=== PATIENT | male | born 1960 | race Caucasian/White ===

== ENCOUNTER → 2017-11-15 | Outpatient (CLI) | payer OTHER ==
[2017-11-09 12:32] VITALS: BMI 21.2
--- NOTE | 2017-11-15 14:55 | P.HPIM ---
History of Present Illness H&P Date: 11/15/17 Chief Complaint: neck pain and right arm numbness/tingling This is a 57-year-old patient referred by Dr. Wallace for chronic pain in neck with radiation to both arms, R >> L. Patient has been taking medications from primary care physician including Tylenol/Motrin medications with some relief. Patient denies adverse drug effects from medications. Patient also denies new- onset weakness, bowel/bladder incontinence, or any other signs or symptoms of cauda equina syndrome. There are no signs of acute intoxication, and no indications of medication diversion or overuse. Patient notes that pain worsens significantly with driving and turning his head , and improves with rest, lying on his right side, and medication. Patient has used several types of medications for pain, including NSAIDS, Tylenol. Patient HAS NOT had surgery. Patient HAS NOT had injections previously. Patient HAS had physical therapy recently without significant relief. In addition to above, 13-point review of systems is also negative for chest pain , shortness of breath, changes in vision, changes in hearing, new onset weakness , abdominal pain, diarrhea, extreme fatigue, malaise, fever, skin changes, homicidal or suicidal ideation, or bowel or bladder incontinence. Vital Signs: Reviewed in EMR Gen: WDWN, AAOx3, NAD HEENT: NCAT, EOMI, hearing grossly normal Pulm: resp unlabored Abd: soft, NT, ND Neck: supple, trachea midline ROM in flexion cervical spine: reduced ROM in extension cervical spine: reduced Cervical paravertebral tenderness: + Cervical Facet tenderness: + bilateral, R > L Spurling's: + RUE Upper extremity: decreased toe puncher strength, decreased shoulder abduction ROM, and decreased elbow flexion/extension secondary to pain Neuro: CN II-XII grossly intact, muscle strength lower extremities PRESERVED Past Medical History Past Medical History: Asthma, Diabetes Mellitus, GERD/Reflux, Hyperlipidemia, Musculoskeletal Disorder, Osteoarthritis (OA) Additional Past Medical History / Comment(s): bulging disc in cervical area- causes pain in right arm, hand & shoulder, neuropathy feet History of Any Multi-Drug Resistant Organisms: None Reported Additional Past Surgical History / Comment(s): hydrocelectomy & fluid removed from hydrocele Past Anesthesia/Blood Transfusion Reactions: No Reported Reaction, Family History of Problems w/ Anesthesia Additional Past Anesthesia/Blood Transfusion Reaction / Comment(s): mom had some kind of problem @dentist-not sure what Smoking Status: Never smoker - Past Family History Mother Family Medical History: Myocardial Infarction (NM) Medications and Allergies Home Medications Medication Instructions Recorded Confirmed Type Acetaminophen [Tylenol Extra 500 mg PO BID 11/09/17 11/15/17 History Strength] Cetirizine HCl [Zyrtec] 10 mg PO DAILY 11/09/17 11/15/17 History Cyclobenzaprine [Flexeril] 10 mg PO BID PRN 11/09/17 11/15/17 History Famotidine [Pepcid] 20 mg PO DAILY 11/09/17 11/15/17 History Gabapentin [Neurontin] 600 mg PO BID 11/09/17 11/15/17 History Ibuprofen [Motrin] 600 mg PO Q8HR PRN 11/09/17 11/15/17 History Simvastatin [Zocor] 20 mg PO HS 11/09/17 11/15/17 History glipiZIDE [Glucotrol] 10 mg PO AC-BRKFST 11/09/17 11/15/17 History metFORMIN HCL ER [Glucophage Xr] 500 mg PO BID 11/09/17 11/15/17 History traMADol HCL [Ultram] 1 tab PO DIRECTED PRN 11/15/17 11/15/17 History Allergies Allergy/AdvReac Type Severity Reaction Status Date / Time Penicillins Allergy Unknown Verified 11/09/17 12:08 Childhood Physical Exam Vitals: Vital Signs Pulse Resp BP Pulse Ox 11/15/17 13:32 69 18 114/68 96 Results Comments: MRI cervical spine Straits disc bulge with central disc protrusions at C5-C6, C6 -C7, and C7-T1. At the C7 weeks C7 level there is uncovertebral hypertrophy and left facet degeneration with mild central canal stenosis. At the C5-C6 level there is uncovertebral hypertrophy and facet degeneration with mild central canal stenosis. Assessment and Plan (1) Cervical spinal stenosis Current Visit: Yes Status: Chronic Code(s): M48.02 - SPINAL STENOSIS, CERVICAL REGION SNOMED Code(s): 17255904 (2) Cervical radiculopathy Current Visit: Yes Status: Chronic Code(s): M54.12 - RADICULOPATHY, CERVICAL REGION SNOMED Code(s): 77452276 (3) Chronic pain syndrome Current Visit: Yes Status: Chronic Code(s): G89.4 - CHRONIC PAIN SYNDROME SNOMED Code(s): 641084562 Plan: 1. Explanation: Opioid and psychological risk scores were reviewed. Diagnoses , prognoses, and multiple treatment options including but not limited to physical therapy, interventional therapies, adjuvant medical therapies, narcotic medication therapies, and surgery were discussed with the patient and all questions were answered to the patient's satisfaction. 2. Opioid agreement: no opioids prescribed today 3. Counseling: The patient was counseled extensively on BODY MASS INDEX, EXERCISE. Specifically, the patient was instructed regarding the importance of weight control, and exercise in the context of both chronic pain and overall health. 4. Procedures: JANELLE series C7-T1 5. Consultations: none 6. Investigations: none 7. Medications: none prescribed 8. Disposition: f/u for procedure as scheduled PQRS measures: 1-Patient's medications are documented in the chart. 2-Tobacco use is negative, counseling given 3-Patient has not had a pneumococcal vaccine. 4-Advanced care planning discussed, patient unable to give. 5-Opioid contract NOT signed with the patient. 6-Pain positive, follow-up visit or procedure scheduled 7-Patient's blood pressure measured and documented, and WNL. 8-Patient's weight was measured, and body mass index WNL. 9-Patient WAS NOT identified as an unhealthy alcohol user. Time with Patient: Greater than 30
[2017-11-15 23:28] VITALS: BP 114/68; PULSE 69; RESP 18
== END | disposition home or self-care (01) ==
LOC: PNWHC3 13:20
PROVIDERS: ATTEND Anesthesiology
DX: M48.02 Spinal stenosis, cervical region (principal); M54.12 Radiculopathy, cervical region; K21.9 Gastro-esophageal reflux disease without esophagitis; E78.5 Hyperlipidemia, unspecified; J45.909 Unspecified asthma, uncomplicated; M19.90 Unspecified osteoarthritis, unspecified site; E11.40 Type 2 diabetes mellitus with diabetic neuropathy, unspecified; Z79.1 Long term (current) use of non-steroidal anti-inflammatories (NSAID); Z88.0 Allergy status to penicillin; Z79.84 Long term (current) use of oral hypoglycemic drugs; Z79.891 Long term (current) use of opiate analgesic; Z79.899 Other long term (current) drug therapy
CPT/HCPCS: 99201

== ENCOUNTER 2018-01-10 08:36 | Day surgery (SDC) | payer OTHER ==
[2018-01-08 13:16] VITALS: BMI 21.2
[~2018-01-10 08:36] MED LIST: LACTATED RINGERS 1,000 ML IV SCH
[2018-01-10] MEDS ORDERED: LIDOCAINE 1% 20 ML VIAL (10MG/ML) FOR IV START INTRADERMA ONE (09:11)
[2018-01-10 09:22] VITALS: RESP 16; TEMP 97.6
[2018-01-10 09:28] LABS: Glucose,Whole Blood 142 mg/dL (75-99)
--- NOTE | 2018-01-10 09:51 | P.PCN ---
Date of Procedure: 01/10/18 Preoperative Diagnosis: Right cervical radiculopathy Postoperative Diagnosis: Same as above Procedure(s) Performed: Cervical epidural steroid injection under fluoroscopic guidance at the C7-T1 level in the right paramedian approach Anesthesia: MAC (Local lidocaine 1% with IV moderate sedation with fentanyl and Versed) Surgeon: Alec Villarreal Pathology: none sent Condition: stable Disposition: PACU Description of Procedure: The patient was seen and identified in the preoperative area. Risks, benefits, complications, including but not limited to infections ,bleeding , allergic reactions to the medications ,and not coplete pain releife, and alternatives were discussed with the patient, the patient agreed to proceed with the procedure and signed the consent. Patient was taken to the OR and time out was completed. The patient was placed in the prone position on the procedure table. A pillow was placed under the patients chest to increase the flexion of the cervical spine . The cervical area was prepped and draped in the usual sterile fashion. Vital signs were closely monitored during the procedure. Conscious sedation was used during the procedure to decrease patients anxiety. Using anterior-posterior fluoroscopy, the C7-T1 interlaminar space was identified and the skin over this site was marked and then infiltrated with 1% lidocaine subcutaneously. Subsequently, a 20-gauge 3-1/2-inch Tuohy epidural needle was inserted and advanced toward the epidural space by means of loss of resistance to air technique and guided by AP and lateral fluoroscopy. The correct needle position in the epidural space was verified with the injection of 1 mL of the water soluble contrast dye Isovue-180 and observing an excellent epidurogram with the epidural spread of the dye, after negative aspiration for blood and CSF and in the absence of paresthesias. Again after negative aspiration, a 4 ml mixture containing 10 mg of Decadron and 3 ml of preservative free Normal Saline solution was injected and a washout of epidurogram was seen. Needle was withdrawn intact, skin was cleansed, and bandages were applied.
--- NOTE | 2018-01-10 10:02 | FL ---
EXAMINATION TYPE: FL guided pain mgmt statistic DATE OF EXAM: 01/10/2018 HISTORY: Pain Dr Haynes 5 secs fl time 1 image scanned. cervical epi ster
[2018-01-10] MEDS ORDERED: IV FLUID CONTINUATION 1,000 ML IV ONE (10:07)
[2018-01-10 10:23] VITALS: BP 101/57; PULSE 60
== END 2018-01-10 10:38 | disposition home or self-care (01) ==
LOC: ORPAIN 08:36
PROVIDERS: ATTEND Anesthesiology
DX: M54.12 Radiculopathy, cervical region (principal); E11.9 Type 2 diabetes mellitus without complications; Z88.0 Allergy status to penicillin
CPT/HCPCS: 62321; J2250; J1100; Q9965; J3010

== ENCOUNTER 2018-02-06 07:23 | Day surgery (SDC) | payer OTHER ==
[2018-02-05 14:18] VITALS: BMI 21.2
[2018-02-06 08:18] VITALS: RESP 16; TEMP 98.2
[2018-02-06] MEDS ORDERED: LACTATED RINGERS 1,000 ML IV ONE (08:31)
[2018-02-06] MEDS ORDERED: LACTATED RINGERS 1,000 ML IV SCH (08:45)
[2018-02-06] MEDS ORDERED: IOPAMIDOL M200 10 ML VIAL ONE (08:46)
[2018-02-06 08:52] LABS: Glucose,Whole Blood 138 mg/dL (75-99)
--- NOTE | 2018-02-06 09:00 | P.PCN ---
Date of Procedure: 02/06/18 Surgeon: Chema Sunshine Pathology: none sent Condition: stable Disposition: PACU Description of Procedure: PREOPERATIVE DIAGNOSIS: Cervical radiculopathy. POSTOPERATIVE DIAGNOSIS: Cervical radiculopathy. PROCEDURE 1. Cervical epidural steroid injection under fluoroscopic guidance, C7-T1 level. 2. Cervical epidurogram. ANESTHESIA: Local anesthesia with 1% lidocaine and IV sedation with versed/ fentanyl. EBL: Minimal PROCEDURE INDICATION: The patient with neck pain and cervical radiculitis unresponsive to conservative treatment consents for procedure, RUE > LUE. No use of blood thinners. PROCEDURE DESCRIPTION / TECHNIQUE: The patient was seen and identified in the preoperative area. Risks, benefits, complications, and alternatives were discussed with the patient (including but not limited to incomplete pain relief, bleeding, infection, nerve damage, and allergies to medications), the patient agreed to proceed with the procedure and signed the consent after all questions were answered. Patient was taken to the OR and time out was completed to verify proper patient , position, laterality of pain, and allergies. Pt was placed in the prone position. A pillow was placed under the patients chest to increase the cervical interlaminar space. The cervical area was prepped and draped in the usual sterile fashion. Critical pause was taken. Vital signs were closely monitored during the procedure. Conscious sedation was used during the procedure to decrease patients anxiety. Using anterior-posterior fluoroscopy, the C7-T1 interlaminar space was identified and the skin over this site was marked and then infiltrated with 1% lidocaine subcutaneously in a right paramedian fashion. Subsequently, a 20- gauge 3-1/2-inch Tuohy epidural needle was inserted and advanced toward the epidural space by means of the loss of resistance technique and guided by AP and lateral fluoroscopy. After negative aspiration for blood or CSF and in the absence of paresthesias, the correct needle position in the epidural space was verified with the injection of 1 mL of the water soluble contrast dye Isovue 200 and observing an excellent epidurogram with the epidural spread of the dye, after negative aspiration for blood and CSF and in the absence of paresthesias. Again after negative aspiration, a 4 ml mixture containing 20 mg of Decadron and 2 ml of preservative free Normal Saline solution was injected and a washout of epidurogram was seen. Needle was withdrawn intact, skin was cleansed, and bandages were applied. COMPLICATIONS: None COMMENTS: DISPOSITION / PLANS: The patient was placed in a supine position and transferred to the recovery area in a stable condition for observation. There was no evidence of upper extremity motor or sensory deficit after the procedure. Patient was discharged from the recovery room after meeting discharge criteria. Home discharge instructions were given to the patient by the staff. The patient was reexamined prior to discharge and there were no issues. The patient will schedule a third JANELLE in approximately 4-6 weeks.
[2018-02-06] MEDS ORDERED: IV FLUID CONTINUATION 1,000 ML IV ONE (09:07)
[2018-02-06 09:27] VITALS: BP 126/76; PULSE 60
--- NOTE | 2018-02-06 11:39 | FL ---
Fluoroscopy HISTORY: Pain 8 seconds fluoroscopy time supplied to the referring clinician. 3 intraoperative C-arm images docume nt the procedure. See dictated report from anesthesia.
== END 2018-02-06 09:38 | disposition home or self-care (01) ==
LOC: ORPAIN 07:23
PROVIDERS: ATTEND Anesthesiology
DX: M54.12 Radiculopathy, cervical region (principal); E11.9 Type 2 diabetes mellitus without complications; J45.909 Unspecified asthma, uncomplicated; K21.9 Gastro-esophageal reflux disease without esophagitis; Z88.0 Allergy status to penicillin
CPT/HCPCS: 62321; J2250; J1100; J3010; Q9966; 99152

== ENCOUNTER 2018-03-19 07:51 | Day surgery (SDC) | payer OTHER ==
[2018-03-19] MEDS ORDERED: LACTATED RINGERS 1,000 ML IV SCH (09:00)
[2018-03-19 09:27] LABS: Glucose,Whole Blood 109 mg/dL (75-99)
[2018-03-19 09:31] VITALS: RESP 16; TEMP 97.7
--- NOTE | 2018-03-19 09:48 | P.PCN ---
Date of Procedure: 03/19/18 Surgeon: Chema Sunshine Pathology: none sent Condition: stable Disposition: PACU Description of Procedure: PREOPERATIVE DIAGNOSIS: Cervical radiculopathy. POSTOPERATIVE DIAGNOSIS: Cervical radiculopathy. PROCEDURE 1. Cervical epidural steroid injection under fluoroscopic guidance, C7-T1 level. 2. Cervical epidurogram. ANESTHESIA: Local anesthesia with 1% lidocaine and IV sedation with versed/ fentanyl. EBL: Minimal PROCEDURE INDICATION: The patient with neck pain and cervical radiculitis unresponsive to conservative treatment consents for procedure, RUE > FRANCISCA, #3 today after 1-2 weeks' relief from the first two procedures. No use of blood thinners. PROCEDURE DESCRIPTION / TECHNIQUE: The patient was seen and identified in the preoperative area. Risks, benefits, complications, and alternatives were discussed with the patient (including but not limited to incomplete pain relief, bleeding, infection, nerve damage, and allergies to medications), the patient agreed to proceed with the procedure and signed the consent after all questions were answered. Patient was taken to the OR and time out was completed to verify proper patient , position, laterality of pain, and allergies. Pt was placed in the prone position. A pillow was placed under the patients chest to increase the cervical interlaminar space. The cervical area was prepped and draped in the usual sterile fashion. Critical pause was taken. Vital signs were closely monitored during the procedure. Conscious sedation was used during the procedure to decrease patients anxiety. Using anterior-posterior fluoroscopy, the C7-T1 interlaminar space was identified and the skin over this site was marked and then infiltrated with 1% lidocaine subcutaneously in a right paramedian fashion. Subsequently, a 20- gauge 3-1/2-inch Tuohy epidural needle was inserted and advanced toward the epidural space by means of the loss of resistance technique and guided by AP and lateral fluoroscopy. After negative aspiration for blood or CSF and in the absence of paresthesias, the correct needle position in the epidural space was verified with the injection of 1 mL of the water soluble contrast dye Isovue 200 and observing an excellent epidurogram with the epidural spread of the dye, after negative aspiration for blood and CSF and in the absence of paresthesias. Again after negative aspiration, a 4 ml mixture containing 20 mg of Decadron and 2 ml of preservative free Normal Saline solution was injected and a washout of epidurogram was seen. Needle was withdrawn intact, skin was cleansed, and bandages were applied. COMPLICATIONS: None COMMENTS: DISPOSITION / PLANS: The patient was placed in a supine position and transferred to the recovery area in a stable condition for observation. There was no evidence of upper extremity motor or sensory deficit after the procedure. Patient was discharged from the recovery room after meeting discharge criteria. Home discharge instructions were given to the patient by the staff. The patient was reexamined prior to discharge and there were no issues. The patient will schedule a follow-up appointment in clinic for re- evaluation.
--- NOTE | 2018-03-19 09:59 | FL ---
EXAMINATION TYPE: FL guided pain mgmt statistic DATE OF EXAM: 03/19/2018 CLINICAL HISTORY: Neck pain. TECHNIQUE: Fluoroscopy. COMPARISON: None. FINDINGS: Fluoroscopic guidance was provided during pain relief procedure performed by Dr. Sunshine . A total of 9 seconds of fluoroscopic time was utilized during the procedure and 3 spot images are acq uired. Images acquired shows needle localization at level cervical thoracic junction. IMPRESSION: As Above.
[2018-03-19 10:11] VITALS: BP 108/66; PULSE 67
== END 2018-03-19 10:25 | disposition home or self-care (01) ==
LOC: ORPAIN 07:51
PROVIDERS: ATTEND Anesthesiology
DX: M54.12 Radiculopathy, cervical region (principal); I10 Essential (primary) hypertension; E11.9 Type 2 diabetes mellitus without complications; K21.9 Gastro-esophageal reflux disease without esophagitis; Z88.0 Allergy status to penicillin
CPT/HCPCS: 62321; J2250; J1100; J3010; Q9966

== ENCOUNTER 2021-01-22 19:32 | Emergency (ER) | payer OTHER ==
[2021-01-22 19:41] VITALS: TEMP 97.6
--- NOTE | 2021-01-22 20:22 | ED ---
URI HPI - General Chief Complaint: Upper Respiratory Infection Stated Complaint: Covid test Time Seen by Provider: 01/22/21 19:53 Source: patient Mode of arrival: ambulatory Limitations: no limitations - History of Present Illness Initial Comments: 60-year-old male patient presents to the emergency department today reporting nasal congestion, drainage, mild intermittent cough. States he started having symptoms yesterday upon awakening. States his was in the emergency department last evening and diagnosed with COVID-19, that he is concerned he may have the same. He is requesting a COVID test. He denies any fever or chills. Denies any shortness of breath or chest tightness. Denies vomiting, diarrhea, rash. States he has a history of diabetes. Patient denies any recent chest pain, abdominal pain, back pain, numbness, tingling, dizziness, weakness, hematuria, dysuria, urinary urgency, urinary frequency, headache, visual changes, or any other complaints. - Related Data Home Medications Medication Instructions Recorded Confirmed Acetaminophen [Tylenol Extra 500 mg PO BID 11/09/17 03/19/18 Strength] Cetirizine HCl [Zyrtec] 10 mg PO DAILY 11/09/17 03/19/18 Cyclobenzaprine [Flexeril] 10 mg PO BID PRN 11/09/17 03/19/18 Famotidine [Pepcid] 20 mg PO BID 11/09/17 03/19/18 Gabapentin [Neurontin] 600 mg PO BID 11/09/17 03/19/18 Ibuprofen [Motrin] 600 mg PO Q8HR PRN 11/09/17 03/19/18 Simvastatin [Zocor] 20 mg PO HS 11/09/17 03/19/18 glipiZIDE [Glucotrol] 10 mg PO 2000 11/09/17 03/19/18 metFORMIN HCL ER [Glucophage Xr] 500 mg PO BID 11/09/17 03/19/18 traMADol HCL [Ultram] 50 mg PO DAILY PRN 11/15/17 03/19/18 Allergies Allergy/AdvReac Type Severity Reaction Status Date / Time Penicillins Allergy Unknown Verified 01/22/21 19:41 Childhood Review of Systems ROS Statement: Those systems with pertinent positive or pertinent negative responses have been documented in the HPI. ROS Other: All systems not noted in ROS Statement are negative. Past Medical History Past Medical History: Asthma, Diabetes Mellitus, GERD/Reflux, Hyperlipidemia, Osteoarthritis (OA) Additional Past Medical History / Comment(s): bulging disc in cervical area- causes pain in right arm, hand & shoulder, neuropathy feet, "scarred bronchial tubes due to inhaling metal dust", hx ulcers, inguinal hernias History of Any Multi-Drug Resistant Organisms: None Reported Additional Past Surgical History / Comment(s): injury to right testicle resulting in hydrocelectomy, fluid removed from hydrocele left testicle Past Anesthesia/Blood Transfusion Reactions: Family History of Problems w/ Anesthesia, Motion Sickness Additional Past Anesthesia/Blood Transfusion Reaction / Comment(s): . Past Psychological History: No Psychological Hx Reported Smoking Status: Former smoker Past Alcohol Use History: Rare Past Drug Use History: None Reported - Past Family History Mother Family Medical History: No Reported History General Exam Limitations: no limitations General appearance: alert, in no apparent distress, other (Physical well- developed, well-nourished adult male patient in no acute distress. Vital signs upon presentation are temperature 97.6F, pulse 79, respirations 20, blood pressure 128/79, pulse ox 97% on room air.) ENT exam: Present: normal exam, normal oropharynx, mucous membranes moist Respiratory exam: Present: normal lung sounds bilaterally. Absent: respiratory distress, wheezes, rales, rhonchi, stridor Cardiovascular Exam: Present: regular rate, normal rhythm, normal heart sounds. Absent: systolic murmur, diastolic murmur, rubs, gallop, clicks GI/Abdominal exam: Present: soft, normal bowel sounds. Absent: distended, tenderness, guarding, rebound, rigid Neurological exam: Present: alert, oriented X3, CN II-XII intact Psychiatric exam: Present: normal affect, normal mood Skin exam: Present: warm, dry, intact, normal color. Absent: rash Course Vital Signs 01/22/21 01/22/21 01/22/21 19:36 21:39 23:04 Temperature 97.6 F Pulse Rate 79 67 65 Respiratory 20 18 18 Rate Blood Pressure 128/79 114/86 128/79 O2 Sat by Pulse 97 98 98 Oximetry Medical Decision Making - Medical Decision Making 60-year-old male patient presents to the emergency department today for evaluation of nasal congestion and drainage as well as mild intermittent cough. No shortness of breath. Physical examination reveals clear equal lung sounds. Is in no respiratory distress. We did test for COVID-19, he did test positive. Given his history of diabetes and his age he does meet criteria to receive bamlanivimab (monoclonal antibodies), we discussed risks versus benefits of receiving this. Patient does agree to have the infusion. He'll be monitored for 60 minutes after infusion and be discharged home to follow-up with his primary care physician. Return parameters were discussed in detail. He verbalizes understanding and agrees with this plan. Case discussed with my attending Dr. Henderson. - Lab Data Lab Results 01/22/21 Range/Units 20:04 Coronavirus (PCR) Detected A (Not Detectd) Disposition Clinical Impression: COVID-19 Disposition: HOME SELF-CARE Condition: Good Instructions (If sedation given, give patient instructions): Coronavirus Disease 2019 (COVID-19) Additional Instructions: Do not get COVID-19 vaccine 90 days after receiving monoclonal antibodies. Follow-up through primary care physician for recheck in 1-2 days. Return to the emergency department for any new, worsening, or concerning symptoms. Is patient prescribed a controlled substance at d/c from ED?: No Referrals: [facility] [Primary Care Provider] - 1-2 days
[2021-01-22 21:40] VITALS: RESP 18
[2021-01-22] MEDS ORDERED: BAMLANIVIMAB 700 MG in SODIUM CHLORIDE 0.9% 50 ML IVPB ONE (21:45)
[2021-01-22 23:05] VITALS: BP 128/79; PULSE 65
== END 2021-01-22 23:06 | disposition home or self-care (01) ==
LOC: EC 19:32
DX: U07.1 COVID-19 (principal); E11.9 Type 2 diabetes mellitus without complications; E78.5 Hyperlipidemia, unspecified; J45.909 Unspecified asthma, uncomplicated; K21.9 Gastro-esophageal reflux disease without esophagitis; M19.90 Unspecified osteoarthritis, unspecified site; Z79.1 Long term (current) use of non-steroidal anti-inflammatories (NSAID); Z79.84 Long term (current) use of oral hypoglycemic drugs; Z87.891 Personal history of nicotine dependence; Z88.0 Allergy status to penicillin
CPT/HCPCS: 87635; 99283; 96374; Q0239

== ENCOUNTER 2021-11-02 16:17 | Emergency (ER) | payer OTHER ==
--- NOTE | 2021-11-02 18:33 | ED ---
Recheck HPI - General Chief Complaint: Recheck/Abnormal Lab/Rx Stated Complaint: Covid +, wants BAM Time Seen by Provider: 11/02/21 18:25 Source: patient Mode of arrival: ambulatory Limitations: no limitations - History of Present Illness Initial Comments: 61-year-old male patient presents for antibody infusion after testing positive for COVID-19. He has had symptoms for the last 10 days. Tested positive on 10/26/2021. He reports body aches, fatigue, mild cough, mild shortness of breath. Denies any fever or chills. Denies chest pain. Denies vomiting or diarrhea. States he is starting to improve but was instructed to come in for the antibody infusion. He did have COVID in January and received antibodies at that time. [employer] vaccine and started at the beginning of October. - Related Data Home Medications Medication Instructions Recorded Confirmed Acetaminophen [Tylenol Extra 500 mg PO TID 11/09/17 11/02/21 Strength] Ibuprofen [Motrin] 600 mg PO Q8HR PRN 11/09/17 11/02/21 metFORMIN HCL ER [Glucophage Xr] 500 mg PO DAILY 11/09/17 11/02/21 traMADol HCL [Ultram] 50 mg PO TID PRN 11/15/17 11/02/21 Gabapentin [Neurontin] 400 mg PO QID 11/02/21 11/02/21 Omeprazole Magnesium [PriLOSEC OTC] 20 mg PO DAILY 11/02/21 11/02/21 Simvastatin [Zocor] 10 mg PO HS 11/02/21 11/02/21 glipiZIDE XL [Glucotrol Xl] 10 mg PO DAILY 11/02/21 11/02/21 Allergies Allergy/AdvReac Type Severity Reaction Status Date / Time Penicillins Allergy Unknown Verified 11/02/21 22:30 Childhood Review of Systems ROS Statement: Those systems with pertinent positive or pertinent negative responses have been documented in the HPI. ROS Other: All systems not noted in ROS Statement are negative. Past Medical History Past Medical History: Asthma, Diabetes Mellitus, GERD/Reflux, Hyperlipidemia, Osteoarthritis (OA) Additional Past Medical History / Comment(s): bulging disc in cervical area- causes pain in right arm, hand & shoulder, neuropathy feet, "scarred bronchial tubes due to inhaling metal dust", hx ulcers, inguinal hernias. COVID January 2021/Oct 2021 History of Any Multi-Drug Resistant Organisms: None Reported Additional Past Surgical History / Comment(s): injury to right testicle resulting in hydrocelectomy, fluid removed from hydrocele left testicle Past Anesthesia/Blood Transfusion Reactions: Family History of Problems w/ Anesthesia, Motion Sickness Additional Past Anesthesia/Blood Transfusion Reaction / Comment(s): . Past Psychological History: No Psychological Hx Reported Smoking Status: Never smoker Past Alcohol Use History: Rare Past Drug Use History: None Reported - Past Family History Mother Family Medical History: No Reported History General Exam Limitations: no limitations General appearance: alert, in no apparent distress, other (This is a well- developed, well-nourished adult male in no acute distress.) ENT exam: Present: normal exam, normal oropharynx, mucous membranes moist Respiratory exam: Present: normal lung sounds bilaterally. Absent: respiratory distress, wheezes, rales, rhonchi, stridor Cardiovascular Exam: Present: regular rate, normal rhythm, normal heart sounds. Absent: systolic murmur, diastolic murmur, rubs, gallop, clicks GI/Abdominal exam: Present: soft, normal bowel sounds. Absent: distended, tenderness, guarding, rebound, rigid Neurological exam: Present: alert, oriented X3, CN II-XII intact Psychiatric exam: Present: normal affect, normal mood Skin exam: Present: warm, dry, intact, normal color. Absent: rash Course Vital Signs 11/02/21 11/02/21 11/02/21 18:23 21:41 23:04 Temperature 98.3 F 97.9 F Pulse Rate 85 76 80 Respiratory 22 16 16 Rate Blood Pressure 131/72 128/74 120/78 O2 Sat by Pulse 98 97 94 L Oximetry Medical Decision Making - Medical Decision Making 61-year-old male patient presented requesting monoclonal antibody infusion after testing positive for COVID-19. His test came back positive here as well. He tolerated the infusion without difficulty. He is discharged follow up with his primary care physician for recheck in 1-2 days. Return parameters were discussed in detail. He verbalizes understanding and agrees with this plan. My attending is Dr. Valdovinos. - Lab Data Lab Results 11/02/21 Range/Units 18:30 Coronavirus (PCR) Detected A (Not Detectd) Disposition Clinical Impression: COVID Disposition: HOME SELF-CARE Condition: Good Instructions (If sedation given, give patient instructions): Coronavirus Disease 2019 (COVID-19) Is patient prescribed a controlled substance at d/c from ED?: No Referrals: [facility] [Primary Care Provider] - 1-2 days
[2021-11-02] MEDS ORDERED: CASIRIVIMAB (REGN10933) (EUA) 600 MG, IMDEVIMAB (REGN10987) (EUA) 600 MG in SODIUM CHLO... IVPB ONE (19:45)
[2021-11-02] MEDS ORDERED: SODIUM CHLORIDE 0.9% 50 ML IVPB ONE (19:45)
[2021-11-02 21:41] VITALS: RESP 16; TEMP 97.9
[2021-11-02 23:06] VITALS: BP 120/78; PULSE 80
== END 2021-11-02 23:06 | disposition home or self-care (01) ==
LOC: EC 16:17
DX: U07.1 COVID-19 (principal); J45.909 Unspecified asthma, uncomplicated; E11.9 Type 2 diabetes mellitus without complications; K21.9 Gastro-esophageal reflux disease without esophagitis; E78.5 Hyperlipidemia, unspecified; M19.90 Unspecified osteoarthritis, unspecified site; Z79.84 Long term (current) use of oral hypoglycemic drugs; Z88.0 Allergy status to penicillin
CPT/HCPCS: 99284; 87635; Q0244

== ENCOUNTER 2022-10-17 16:23 | Emergency (ER) | payer OTHER ==
--- NOTE | 2022-10-17 19:29 | ED ---
General Adult HPI - General Chief complaint: Upper Respiratory Infection Stated complaint: Covid test needed Time Seen by Provider: 10/17/22 19:08 Source: patient Mode of arrival: ambulatory Limitations: no limitations - History of Present Illness Initial comments: This is 62-year-old male with a past medical history including diabetes presents emergency department for nasal congestion. 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 His around multiple sick grandchildren with nasal congestion and that his is also sick currently. The patient stated that he had nasal congestion as well as a productive cough. The patient denied any nausea, vomiting as well as any fevers and chills. The patient was resting in bed comfortably. - Related Data Home Medications Medication Instructions Recorded Confirmed Acetaminophen [Tylenol Extra 500 mg PO TID 11/09/17 11/02/21 Strength] Ibuprofen [Motrin] 600 mg PO Q8HR PRN 11/09/17 11/02/21 metFORMIN HCL ER [Glucophage Xr] 500 mg PO DAILY 11/09/17 11/02/21 traMADol HCL [Ultram] 50 mg PO TID PRN 11/15/17 11/02/21 Gabapentin [Neurontin] 400 mg PO QID 11/02/21 11/02/21 Omeprazole Magnesium [PriLOSEC OTC] 20 mg PO DAILY 11/02/21 11/02/21 Simvastatin [Zocor] 10 mg PO HS 11/02/21 11/02/21 glipiZIDE XL [Glucotrol Xl] 10 mg PO DAILY 11/02/21 11/02/21 Allergies Allergy/AdvReac Type Severity Reaction Status Date / Time Penicillins Allergy Unknown Verified 11/02/21 22:30 Childhood Review of Systems ROS Statement: Those systems with pertinent positive or pertinent negative responses have been documented in the HPI. ROS Other: All systems not noted in ROS Statement are negative. Past Medical History Past Medical History: Asthma, Diabetes Mellitus, GERD/Reflux, Hyperlipidemia, Osteoarthritis (OA) Additional Past Medical History / Comment(s): bulging disc in cervical area- causes pain in right arm, hand & shoulder, neuropathy feet, "scarred bronchial tubes due to inhaling metal dust", hx ulcers, inguinal hernias. COVID January 2021/Oct 2021 History of Any Multi-Drug Resistant Organisms: None Reported Additional Past Surgical History / Comment(s): injury to right testicle resulting in hydrocelectomy, fluid removed from hydrocele left testicle Past Anesthesia/Blood Transfusion Reactions: Family History of Problems w/ Anesthesia, Motion Sickness Additional Past Anesthesia/Blood Transfusion Reaction / Comment(s): . Past Psychological History: No Psychological Hx Reported Smoking Status: Never smoker Past Alcohol Use History: Rare Past Drug Use History: None Reported - Past Family History Mother Family Medical History: No Reported History General Exam Limitations: no limitations General appearance: alert, in no apparent distress Head exam: Present: atraumatic, normocephalic Eye exam: Present: normal appearance, PERRL Pupils: Present: normal accommodation ENT exam: Present: normal exam, normal oropharynx, mucous membranes moist Neck exam: Present: normal inspection, full ROM Respiratory exam: Present: normal lung sounds bilaterally Cardiovascular Exam: Present: regular rate, normal rhythm, normal heart sounds GI/Abdominal exam: Present: soft, normal bowel sounds Extremities exam: Present: normal inspection, full ROM Back exam: Present: normal inspection, full ROM Neurological exam: Present: alert, oriented X3, CN II-XII intact Psychiatric exam: Present: normal affect, normal mood Skin exam: Present: warm, dry Course Vital Signs 10/17/22 10/17/22 16:49 19:15 Temperature 97.7 F Pulse Rate 80 Respiratory 20 18 Rate Blood Pressure 128/73 O2 Sat by Pulse 98 Oximetry Medical Decision Making - Medical Decision Making The patient was seen and evaluated in the emergency department. Physical exam, the patient was resting in bed without any acute distress. Vital signs were stable on evaluation. Swabs for COVID-19, RSV and influenza were obtained in triage were all negative. The patient continued to remain stable and denied of any concerning symptoms or findings on physical exam. The patient likely had an upper respiratory infection and he was advised that he could take Claritin or Zyrtec which he had at home to assist with the nasal drainage. The patient was advised to follow-up with his primary care physician for further workup and evaluations report back to the emergency department if his symptoms became acutely worse with worsening shortness of breath. The patient and his are agreeable to this and understood these instructions. The patient was discharged home in stable condition. - Lab Data Lab Results 10/17/22 Range/Units 17:34 Influenza Type A (PCR) Not Detected (Not Detectd) Influenza Type B (PCR) Not Detected (Not Detectd) RSV (PCR) Not Detected (Not Detectd) SARS-CoV-2 (PCR) Not Detected (Not Detectd) Disposition Clinical Impression: Upper respiratory tract infection Disposition: HOME SELF-CARE Condition: Stable Instructions (If sedation given, give patient instructions): Upper Respiratory Infection (ED) Is patient prescribed a controlled substance at d/c from ED?: No Referrals: [facility] [NON-STAFF] - 1-2 days Time of Disposition: 19:25
[2022-10-17 19:54] VITALS: BP 130/78; PULSE 79; RESP 17; TEMP 98.5
== END 2022-10-17 19:54 | disposition home or self-care (01) ==
LOC: EC 16:23
DX: J06.9 Acute upper respiratory infection, unspecified (principal); J45.909 Unspecified asthma, uncomplicated; E11.9 Type 2 diabetes mellitus without complications; K21.9 Gastro-esophageal reflux disease without esophagitis; E78.5 Hyperlipidemia, unspecified; M19.90 Unspecified osteoarthritis, unspecified site; Z79.1 Long term (current) use of non-steroidal anti-inflammatories (NSAID); Z79.84 Long term (current) use of oral hypoglycemic drugs; Z79.02 Long term (current) use of antithrombotics/antiplatelets; Z79.899 Other long term (current) drug therapy; Z88.0 Allergy status to penicillin; Z86.16 Personal history of COVID-19; Z20.822 Contact with and (suspected) exposure to COVID-19
CPT/HCPCS: 87636; 99283